=== PATIENT | female | born 1985 | race African-American/Black ===

== ENCOUNTER 2017-01-02 08:17 | Emergency (ER) | payer MEDICAID ==
[~2017-01-02] VITALS: Ht 165.1 cm; Wt 72.0 kg
[2017-01-02] MEDS ORDERED: IBUPROFEN 600MG TABLET PO ONE (09:00)
[2017-01-02] MEDS ORDERED: CYCLOBENZAPRINE 10MG TABLET PO ONE (09:00)
[2017-01-02 09:06] VITALS: BP 123/77
== END 2017-01-02 09:22 | disposition home or self-care (01) ==
LOC: ER 08:50
DX: S16.1XXA Strain of muscle, fascia and tendon at neck level, initial encounter (principal); S39.012A Strain of muscle, fascia and tendon of lower back, initial encounter; S00.83XA Contusion of other part of head, initial encounter; V49.9XXA Car occupant (driver) (passenger) injured in unspecified traffic accident, initial encounter; Y93.89 Activity, other specified; Y92.89 Other specified places as the place of occurrence of the external cause; Y99.8 Other external cause status
CPT/HCPCS: 99283